=== PATIENT | male | born 1995 | race Caucasian/White ===

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

== ENCOUNTER → 2017-05-13 | Outpatient (CLI) | payer BC ==
[~2017-05-13] MED LIST changes: -AFRIN; -ALBINS INH; -AMB5 PO; -DEXT1LIQ58 PO; -FLUT0.15 NAE; -IBUP-1105 PO; -PIPE1INJ IV; +PRD/1 PO; -SALI0.6510; -TYL325X PO; -VNCS125 IV; -ZFRI4 IV
--- NOTE | 2017-05-13 13:27 | DIAGNOSTIC IMAGING REPORT ---
FUSION CT SINUSES W/O CLINICAL HISTORY: 21 years-old Male presenting with J32.9 Chronic sinusitispost treatment. hx of severe sinusitis r. TECHNIQUE: Multidetector CT of the sinuses was performed without the use of intravenous contrast. IV contrast: None. A dose lowering technique was used consistent with the principles of ALARA (as low as reasonably achievable). COMPARISON: 02/10/2016. CT DOSE (mGy.cm): The estimated cumulative dose is 639.66 mGy.cm. FINDINGS: Services Host topogram: Unremarkable. Interval resolution of layering fluid in the left maxillary sinus and pneumocephalus. Mild mucosal thickening in the bilateral maxillary sinuses. Polypoid mucosal thickening in the left frontal sinus. No sclerosis of the maxillary sinus clark to suggest chronic sinusitis. Mild leftward deviation of the bony nasal septum. No evidence of bridging or bony spurring. Ostiomeatal units patent bilaterally. Nasofrontal ethmoidal recesses patent bilaterally despite left frontal sinus mucosal thickening. No bony dehiscence of the optic canals or carotid siphons. Orbits intact. Soft tissues of the face within normal limits. Limited intracranial evaluation within normal limits. Upper cervical spine normal. IMPRESSION: 1. No CT evidence of acute or chronic sinusitis at this time. 2. Mild nonspecific mucosal thickening in the paranasal sinuses as above. No significant anatomic variant. Electronically signed by: Simeon Bolden M.D. 05/13/2017 1:25 PM Dictated Date/Time: 05/13/2017 1:21 PM
== END | disposition home or self-care (01) ==
LOC: C.CTS 13:00
PROVIDERS: ATTEND Physician Assistant
DX: J32.9 Chronic sinusitis, unspecified (principal)